=== PATIENT | male | born 1970 | race African-American/Black ===

== ENCOUNTER 2021-06-02 10:40 | Inpatient (IN) | payer OTHER ==
[2021-06-02 11:58] VITALS: BMI 25.8
[2021-06-02] MEDS ORDERED: chlordiazePOXIDE HCL 25 MG CAPSULE PO PRN (14:15)
[2021-06-02] MEDS ORDERED: IBUPROFEN 400 MG TABLET (FP) PO PRN (14:15)
[2021-06-02] MEDS ORDERED: MAGNESIUM HYDROX 2400MG/30ML ORAL SUSPENSION 30 ML CUP PO PRN (14:15)
[2021-06-02] MEDS ORDERED: MENTHOL/PHENOL 1 EACH UD MM PRN (14:15)
[2021-06-02] MEDS ORDERED: ACETAMINOPHEN 325 MG TABLET (FP) PO PRN ×2 (14:15)
[2021-06-02] MEDS ORDERED: MAGNESIUM CITRATE 300 ML BOTTLE PO PRN (14:15)
[2021-06-02] MEDS ORDERED: chlordiazePOXIDE HCL 25 MG CAPSULE PO ONE (14:15)
[2021-06-02] MEDS ORDERED: ONDANSETRON *ODT* 4 MG TABLET SL PRN (14:15)
[2021-06-02] MEDS ORDERED: NICOTINE 10 MG CARTRIDGE (INHALER) IH PRN (14:15)
[2021-06-02] MEDS ORDERED: NICOTINE POLACRILEX 2 MG GUM BUC PRN (14:15)
[2021-06-02] MEDS ORDERED: MAG HYDROX/AL HYDROX/SIMETH 30 ML UNIT-DOSE CUP PO PRN (14:15)
[2021-06-02] MEDS ORDERED: amLODIPine BESYLATE 5 MG TABLET (FP) ONE (17:53)
[2021-06-02] MEDS ORDERED: METHOCARBAMOL 500 MG TABLET ONE ×2 (17:53)
[2021-06-02] MEDS ORDERED: hydrOXYzine PAMOATE 25 MG CAPSULE (FP) PO ONE (17:53)
[2021-06-02] MEDS ORDERED: chlordiazePOXIDE HCL 25 MG CAPSULE ONE (17:53)
[2021-06-02] MEDS: amLODIPine BESYLATE 10 MG TABLET (FP) PO SCH (17:55)
[2021-06-02] MEDS: METHOCARBAMOL 500 MG TABLET PO PRN ×2 (17:56→23:16)
[2021-06-02] MEDS: hydrOXYzine PAMOATE 25 MG CAPSULE (FP) PO SCH ×2 (17:56→23:15)
[2021-06-02] MEDS: chlordiazePOXIDE HCL 25 MG CAPSULE PO SCH ×2 (17:56→23:16)
[2021-06-02] MEDS ORDERED: MELATONIN 5 MG TABLETS PO SCH (22:00)
[2021-06-02] MEDS: THIAMINE HCL 100 MG TABLET (FP) PO SCH (23:26)
[2021-06-02] MEDS: PRENATAL VITAMINS W/ FOLIC ACID TABLET (FP) PO SCH (23:26)
[2021-06-02] MEDS: NICOTINE 21 MG/24 HOURS TOPICAL PATCH TD SCH (23:27)
[2021-06-02] MEDS: LIDOCAINE PATCH REMOVAL MC SCH (23:27)
[2021-06-02] MEDS: LIDOCAINE 5% TOPICAL PATCH TP SCH (23:27)
[2021-06-03] MEDS: chlordiazePOXIDE HCL 25 MG CAPSULE PO SCH ×4 (06:42→22:52)
[2021-06-03] MEDS: hydrOXYzine PAMOATE 25 MG CAPSULE (FP) PO SCH ×5 (06:42→22:52)
[2021-06-03] MEDS: BISMUTH SUBSALICYLATE 524 MG/30 ML PO PRN ×3 (06:44→19:17)
[2021-06-03] MEDS: PRENATAL VITAMINS W/ FOLIC ACID TABLET (FP) PO SCH (10:22)
[2021-06-03] MEDS: amLODIPine BESYLATE 10 MG TABLET (FP) PO SCH (10:23)
[2021-06-03] MEDS ORDERED: PNEUMOC 13-VAL CONJ-DIP CRM/PF 0.5 ML DISP.SYRIN IM ONE (12:00)
[2021-06-03] MEDS: NICOTINE 21 MG/24 HOURS TOPICAL PATCH TD SCH (15:52)
[2021-06-03] MEDS: LIDOCAINE 5% TOPICAL PATCH TP SCH (15:53)
[2021-06-03] MEDS: METHOCARBAMOL 500 MG TABLET PO PRN (19:17)
[2021-06-03] MEDS: CLOTRIMAZOLE 1% CREAM TP SCH (22:15)
[2021-06-03] MEDS: LIDOCAINE PATCH REMOVAL MC SCH (22:16)
[2021-06-03] MEDS: SUVOREXANT 10 MG TABLET PO PRN (22:52)
[2021-06-03] MEDS: THIAMINE HCL 100 MG TABLET (FP) PO SCH (22:52)
[2021-06-04] MEDS: chlordiazePOXIDE HCL 25 MG CAPSULE PO SCH ×4 (06:08→22:37)
[2021-06-04] MEDS: hydrOXYzine PAMOATE 25 MG CAPSULE (FP) PO SCH ×5 (06:08→22:37)
[2021-06-04] MEDS: NICOTINE POLACRILEX 2 MG GUM BUC PRN (06:22)
[2021-06-04] MEDS: amLODIPine BESYLATE 10 MG TABLET (FP) PO SCH (10:54)
[2021-06-04] MEDS: NICOTINE 21 MG/24 HOURS TOPICAL PATCH TD SCH (10:54)
[2021-06-04] MEDS: PRENATAL VITAMINS W/ FOLIC ACID TABLET (FP) PO SCH (10:54)
[2021-06-04] MEDS: LIDOCAINE 5% TOPICAL PATCH TP SCH (10:58)
[2021-06-04] MEDS: CLOTRIMAZOLE 1% CREAM TP SCH ×2 (11:00→22:07)
[2021-06-04] MEDS: METHOCARBAMOL 500 MG TABLET PO PRN (18:31)
[2021-06-04] MEDS: LIDOCAINE PATCH REMOVAL MC SCH (22:06)
[2021-06-04] MEDS: THIAMINE HCL 100 MG TABLET (FP) PO SCH (22:37)
[2021-06-04] MEDS: SUVOREXANT 10 MG TABLET PO PRN (22:37)
[2021-06-05] MEDS ORDERED: chlordiazePOXIDE HCL 10 MG CAPSULE PO PRN
[2021-06-05] MEDS: hydrOXYzine PAMOATE 25 MG CAPSULE (FP) PO SCH ×5 (06:13→21:13)
[2021-06-05] MEDS: chlordiazePOXIDE HCL 10 MG CAPSULE PO SCH ×4 (06:13→22:08)
[2021-06-05] MEDS: BISMUTH SUBSALICYLATE 524 MG/30 ML PO PRN ×2 (06:15→14:27)
[2021-06-05] MEDS: LORATADINE 10 MG TABLET PO SCH (10:49)
[2021-06-05] MEDS: PRENATAL VITAMINS W/ FOLIC ACID TABLET (FP) PO SCH (10:49)
[2021-06-05] MEDS: METHOCARBAMOL 500 MG TABLET PO PRN (10:49)
[2021-06-05] MEDS: LIDOCAINE 5% TOPICAL PATCH TP SCH (10:50)
[2021-06-05] MEDS: amLODIPine BESYLATE 10 MG TABLET (FP) PO SCH (10:50)
[2021-06-05] MEDS: NICOTINE 21 MG/24 HOURS TOPICAL PATCH TD SCH (10:51)
[2021-06-05] MEDS: CLOTRIMAZOLE 1% CREAM TP SCH ×2 (10:51→21:14)
[2021-06-05] MEDS: FLUTICASONE PROP 0.05% 16 GM NASAL SPRAY NS SCH (11:33)
[2021-06-05] MEDS: THIAMINE HCL 100 MG TABLET (FP) PO SCH (21:13)
[2021-06-05] MEDS: LIDOCAINE PATCH REMOVAL MC SCH (21:14)
[2021-06-06] MEDS: hydrOXYzine PAMOATE 25 MG CAPSULE (FP) PO SCH ×5 (06:22→22:21)
[2021-06-06] MEDS: chlordiazePOXIDE HCL 10 MG CAPSULE PO SCH ×2 (06:22→18:06)
[2021-06-06] MEDS: BISMUTH SUBSALICYLATE 524 MG/30 ML PO PRN (06:23)
[2021-06-06] MEDS: NICOTINE POLACRILEX 2 MG GUM BUC PRN (06:23)
[2021-06-06] MEDS: CLOTRIMAZOLE 1% CREAM TP SCH ×2 (10:30→22:22)
[2021-06-06] MEDS: amLODIPine BESYLATE 10 MG TABLET (FP) PO SCH (10:30)
[2021-06-06] MEDS: METHOCARBAMOL 500 MG TABLET PO PRN ×2 (10:30→22:21)
[2021-06-06] MEDS: LORATADINE 10 MG TABLET PO SCH (10:30)
[2021-06-06] MEDS: PRENATAL VITAMINS W/ FOLIC ACID TABLET (FP) PO SCH (10:30)
[2021-06-06] MEDS: LIDOCAINE 5% TOPICAL PATCH TP SCH (10:31)
[2021-06-06] MEDS: NICOTINE 21 MG/24 HOURS TOPICAL PATCH TD SCH (10:31)
[2021-06-06] MEDS: FLUTICASONE PROP 0.05% 16 GM NASAL SPRAY NS SCH (10:32)
[2021-06-06] MEDS: THIAMINE HCL 100 MG TABLET (FP) PO SCH (22:21)
[2021-06-06] MEDS: LIDOCAINE PATCH REMOVAL MC SCH (22:22)
[2021-06-07] MEDS ORDERED: chlordiazePOXIDE HCL 10 MG CAPSULE PO ONE (05:00)
[2021-06-07] MEDS: hydrOXYzine PAMOATE 25 MG CAPSULE (FP) PO SCH ×2 (06:45→10:03)
[2021-06-07] MEDS: NICOTINE POLACRILEX 2 MG GUM BUC PRN (07:22)
[2021-06-07 09:13] VITALS: BP 136/88; PULSE 71; TEMP 97.3
[2021-06-07] MEDS: LIDOCAINE 5% TOPICAL PATCH TP SCH (10:02)
[2021-06-07] MEDS: FLUTICASONE PROP 0.05% 16 GM NASAL SPRAY NS SCH (10:03)
[2021-06-07] MEDS: amLODIPine BESYLATE 10 MG TABLET (FP) PO SCH (10:03)
[2021-06-07] MEDS: PRENATAL VITAMINS W/ FOLIC ACID TABLET (FP) PO SCH (10:03)
[2021-06-07] MEDS: LORATADINE 10 MG TABLET PO SCH (10:03)
[2021-06-07] MEDS: METHOCARBAMOL 500 MG TABLET PO PRN (10:03)
[2021-06-07] MEDS: NICOTINE 21 MG/24 HOURS TOPICAL PATCH TD SCH (10:04)
[2021-06-07] MEDS: CLOTRIMAZOLE 1% CREAM TP SCH (10:04)
== END 2021-06-07 12:21 | disposition other institution (70) | DRG 773 ==
LOC: YASAS 10:40 → Y6N 20:23
PROVIDERS: ADMIT Allergy & Immunology; ATTEND Allergy & Immunology
PROC: HZ2ZZZZ Detoxification Services for Substance Abuse Treatment (ICD-10-PCS; principal; 2021-06-02)
DX: F10.230 Alcohol dependence with withdrawal, uncomplicated (principal); F13.230 Sedative, hypnotic or anxiolytic dependence with withdrawal, uncomplicated; F11.20 Opioid dependence, uncomplicated; F14.20 Cocaine dependence, uncomplicated; F12.20 Cannabis dependence, uncomplicated; F17.213 Nicotine dependence, cigarettes, with withdrawal; F19.282 Other psychoactive substance dependence with psychoactive substance-induced sleep disorder; F19.24 Other psychoactive substance dependence with psychoactive substance-induced mood disorder; I10 Essential (primary) hypertension; K21.9 Gastro-esophageal reflux disease without esophagitis; M54.50 Low back pain, unspecified; G89.29 Other chronic pain; Z87.11 Personal history of peptic ulcer disease; Z59.00 Homelessness unspecified; Z86.69 Personal history of other diseases of the nervous system and sense organs
CPT/HCPCS: 90670; C9803; U0003; U0005

== ENCOUNTER 2021-06-07 11:35 | Inpatient (IN) | payer OTHER ==
[~2021-06-07 11:35] MED LIST: ACETAMINOPHEN 325 MG TABLET (FP) PO PRN; IBUPROFEN 400 MG TABLET (FP) PO PRN; LOPERAMIDE HCL 2 MG CAPSULE PO PRN; MAGNESIUM CITRATE 300 ML BOTTLE PO PRN; MAGNESIUM HYDROX 2400MG/30ML ORAL SUSPENSION 30 ML CUP PO PRN; NICOTINE 10 MG CARTRIDGE (INHALER) IH PRN; guaiFENesin 200 MG/10 ML 10 ML UNIT-DOSE CUPS PO PRN; hydrOXYzine PAMOATE 25 MG CAPSULE (FP) PO PRN
[2021-06-07] MEDS ORDERED: BISMUTH SUBSALICYLATE 262 MG/15 ML BTL PO PRN (13:47)
[2021-06-07] MEDS ORDERED: MINERAL OIL/PETROLAT/WATER TOPICAL CREAM 113 GM JAR TP PRN (13:48)
[2021-06-07] MEDS ORDERED: COLLOIDAL OATMEAL 1 BAR EACH TP PRN (13:48)
[2021-06-07] MEDS ORDERED: IBUPROFEN 600 MG TABLET (FP) PO PRN (13:50)
[2021-06-07] MEDS ORDERED: BISMUTH SUBSALICYLATE 262 MG/15 ML BTL ONE (21:39)
[2021-06-07] MEDS: THIAMINE HCL 100 MG TABLET (FP) PO SCH (21:40)
[2021-06-07] MEDS: MELATONIN 5 MG TABLETS PO SCH (21:40)
[2021-06-07] MEDS: PARoxetine HCL 10 MG TABLET PO SCH (21:40)
[2021-06-07] MEDS: TOLNAFTATE 1% POWDER 45 GM POW TP SCH (21:41)
[2021-06-07] MEDS: IBUPROFEN 600 MG TABLET (FP) PO PRN (21:42)
[2021-06-07] MEDS: LIDOCAINE PATCH REMOVAL MC SCH (21:44)
[2021-06-07] MEDS: CLOTRIMAZOLE 1% CREAM TP SCH (21:46)
[2021-06-07] MEDS ORDERED: MELATONIN 5 MG TABLETS PO SCH (22:00)
[2021-06-07] MEDS ORDERED: TOLNAFTATE 1% POWDER 45 GM POW TP SCH (22:00)
[2021-06-08] MEDS: NICOTINE POLACRILEX 4 MG GUM BUC PRN (06:32)
[2021-06-08] MEDS: LORATADINE 10 MG TABLET PO SCH (09:52)
[2021-06-08] MEDS: FLUTICASONE PROP 0.05% 16 GM NASAL SPRAY NS SCH (09:53)
[2021-06-08] MEDS: LIDOCAINE 5% TOPICAL PATCH TP SCH (09:53)
[2021-06-08] MEDS: CLOTRIMAZOLE 1% CREAM TP SCH ×2 (09:54→21:18)
[2021-06-08] MEDS: NICOTINE 21 MG/24 HOURS TOPICAL PATCH TD SCH (09:54)
[2021-06-08] MEDS: amLODIPine BESYLATE 10 MG TABLET (FP) PO SCH (09:54)
[2021-06-08] MEDS: PRENATAL VITAMINS W/ FOLIC ACID TABLET (FP) PO SCH (09:54)
[2021-06-08] MEDS: TOLNAFTATE 1% POWDER 45 GM POW TP SCH ×2 (09:55→21:20)
[2021-06-08] MEDS: LIDOCAINE PATCH REMOVAL MC SCH (21:15)
[2021-06-08] MEDS: THIAMINE HCL 100 MG TABLET (FP) PO SCH (21:19)
[2021-06-08] MEDS: PARoxetine HCL 10 MG TABLET PO SCH (21:19)
[2021-06-08] MEDS: MELATONIN 5 MG TABLETS PO SCH (21:19)
[2021-06-09] MEDS: NICOTINE POLACRILEX 4 MG GUM BUC PRN ×2 (06:16→21:24)
[2021-06-09] MEDS: NICOTINE 21 MG/24 HOURS TOPICAL PATCH TD SCH (11:45)
[2021-06-09] MEDS: LORATADINE 10 MG TABLET PO SCH (11:45)
[2021-06-09] MEDS: PRENATAL VITAMINS W/ FOLIC ACID TABLET (FP) PO SCH (11:45)
[2021-06-09] MEDS: FLUTICASONE PROP 0.05% 16 GM NASAL SPRAY NS SCH (11:45)
[2021-06-09] MEDS: TOLNAFTATE 1% POWDER 45 GM POW TP SCH ×2 (11:45→21:11)
[2021-06-09] MEDS: LIDOCAINE 5% TOPICAL PATCH TP SCH (11:45)
[2021-06-09] MEDS: CLOTRIMAZOLE 1% CREAM TP SCH ×2 (11:45→21:12)
[2021-06-09] MEDS: amLODIPine BESYLATE 10 MG TABLET (FP) PO SCH (11:50)
[2021-06-09] MEDS: MELATONIN 5 MG TABLETS PO SCH (21:10)
[2021-06-09] MEDS: THIAMINE HCL 100 MG TABLET (FP) PO SCH (21:10)
[2021-06-09] MEDS: LIDOCAINE PATCH REMOVAL MC SCH (21:12)
[2021-06-09] MEDS: PARoxetine HCL 10 MG TABLET PO SCH (22:46)
[2021-06-10] MEDS: NICOTINE POLACRILEX 4 MG GUM BUC PRN ×2 (06:35→21:09)
[2021-06-10] MEDS: amLODIPine BESYLATE 10 MG TABLET (FP) PO SCH (09:36)
[2021-06-10] MEDS: PRENATAL VITAMINS W/ FOLIC ACID TABLET (FP) PO SCH (09:36)
[2021-06-10] MEDS: LORATADINE 10 MG TABLET PO SCH (09:37)
[2021-06-10] MEDS: FLUTICASONE PROP 0.05% 16 GM NASAL SPRAY NS SCH (09:38)
[2021-06-10] MEDS: TOLNAFTATE 1% POWDER 45 GM POW TP SCH ×2 (09:38→21:06)
[2021-06-10] MEDS: LIDOCAINE 5% TOPICAL PATCH TP SCH (09:39)
[2021-06-10] MEDS: CLOTRIMAZOLE 1% CREAM TP SCH ×2 (09:40→21:06)
[2021-06-10] MEDS: NICOTINE 21 MG/24 HOURS TOPICAL PATCH TD SCH (09:40)
[2021-06-10 11:23] LABS: CALCIUM 9.2 mg/dL (8.5-10.1)
[2021-06-10 11:24] LABS: ALBUMIN 3.8 g/dl (3.4-5.0); BLOOD UREA NITROGEN 9.9 mg/dL (7-18)
[2021-06-10 11:26] LABS: BASO % 1.5 % (0-2.0); HEMATOCRIT 41.5 % (35.4-49); HEMOGLOBIN 14.1 GM/dL (11.7-16.9); MCH 30.2 pg (25.7-33.7); MCHC 34.1 g/dl (32.0-35.9); MEAN CELL VOLUME 88.5 fl (80-96); MEAN PLT VOLUME 8.2 fl (7.5-11.1); MONO % 9.7 % (3.8-10.2); NEUT % 32.8 % (42.8-82.8); PLATELET COUNT 226 10^3/uL (134-434); RBC 4.68 M/mm3 (4.00-5.60); RDW 17.1 % (11.9-15.9); WHITE BLOOD COUNT 4.8 K/mm3 (4.0-10.0)
[2021-06-10 11:27] LABS: CREATININE 0.9 mg/dL (0.55-1.3)
[2021-06-10 11:28] LABS: BILIRUBIN,TOTAL 0.8 mg/dL (0.2-1); TOT PROT 7.1 g/dl (6.4-8.2)
[2021-06-10 14:07] LABS: SARS-CoV-2 NAA Not Detected (Not Detected)
[2021-06-10] MEDS: LIDOCAINE PATCH REMOVAL MC SCH (21:05)
[2021-06-10] MEDS: IBUPROFEN 600 MG TABLET (FP) PO PRN (21:05)
[2021-06-10] MEDS: MELATONIN 5 MG TABLETS PO SCH (21:06)
[2021-06-10] MEDS: THIAMINE HCL 100 MG TABLET (FP) PO SCH (21:06)
[2021-06-10] MEDS: PARoxetine HCL 10 MG TABLET PO SCH (21:06)
[2021-06-11] MEDS: NICOTINE POLACRILEX 4 MG GUM BUC PRN (06:24)
[2021-06-11] MEDS: FLUTICASONE PROP 0.05% 16 GM NASAL SPRAY NS SCH (10:10)
[2021-06-11] MEDS: PRENATAL VITAMINS W/ FOLIC ACID TABLET (FP) PO SCH (10:11)
[2021-06-11] MEDS: amLODIPine BESYLATE 10 MG TABLET (FP) PO SCH (10:13)
[2021-06-11] MEDS: LIDOCAINE 5% TOPICAL PATCH TP SCH (10:13)
[2021-06-11] MEDS: CLOTRIMAZOLE 1% CREAM TP SCH (10:13)
[2021-06-11] MEDS: NICOTINE 21 MG/24 HOURS TOPICAL PATCH TD SCH (10:14)
[2021-06-11] MEDS: TOLNAFTATE 1% POWDER 45 GM POW TP SCH (10:14)
[2021-06-11] MEDS: LORATADINE 10 MG TABLET PO SCH (10:15)
[2021-06-11] MEDS: LIDOCAINE PATCH REMOVAL MC SCH (21:07)
[2021-06-11] MEDS: MELATONIN 5 MG TABLETS PO SCH (21:08)
[2021-06-11] MEDS: PARoxetine HCL 10 MG TABLET PO SCH (21:08)
[2021-06-11] MEDS: THIAMINE HCL 100 MG TABLET (FP) PO SCH (21:08)
[2021-06-11] MEDS: BACITRACIN/POLYMYXIN B SULFATE 15 GM TUBE TP SCH (21:09)
[2021-06-11] MEDS: CLOTRIMAZOLE/BETAMET DIPROP TOPICAL CREAM 45 GM TUBE TP SCH (21:11)
[2021-06-12] MEDS: NICOTINE POLACRILEX 4 MG GUM BUC PRN ×2 (06:20→21:37)
[2021-06-12] MEDS: LORATADINE 10 MG TABLET PO SCH (09:41)
[2021-06-12] MEDS: FLUTICASONE PROP 0.05% 16 GM NASAL SPRAY NS SCH (09:41)
[2021-06-12] MEDS: CLOTRIMAZOLE/BETAMET DIPROP TOPICAL CREAM 45 GM TUBE TP SCH ×2 (09:42→21:39)
[2021-06-12] MEDS: LIDOCAINE 5% TOPICAL PATCH TP SCH (09:42)
[2021-06-12] MEDS: NICOTINE 21 MG/24 HOURS TOPICAL PATCH TD SCH (09:42)
[2021-06-12] MEDS: BACITRACIN/POLYMYXIN B SULFATE 15 GM TUBE TP SCH ×2 (09:43→21:38)
[2021-06-12] MEDS: amLODIPine BESYLATE 10 MG TABLET (FP) PO SCH (09:43)
[2021-06-12] MEDS: PRENATAL VITAMINS W/ FOLIC ACID TABLET (FP) PO SCH (09:43)
[2021-06-12] MEDS: MELATONIN 5 MG TABLETS PO SCH (21:36)
[2021-06-12] MEDS: THIAMINE HCL 100 MG TABLET (FP) PO SCH (21:36)
[2021-06-12] MEDS: PARoxetine HCL 10 MG TABLET PO SCH (21:36)
[2021-06-12] MEDS: LIDOCAINE PATCH REMOVAL MC SCH (21:37)
[2021-06-13] MEDS: NICOTINE POLACRILEX 4 MG GUM BUC PRN ×2 (06:42→21:28)
[2021-06-13] MEDS: LIDOCAINE 5% TOPICAL PATCH TP SCH (10:01)
[2021-06-13] MEDS: NICOTINE 21 MG/24 HOURS TOPICAL PATCH TD SCH (10:01)
[2021-06-13] MEDS: amLODIPine BESYLATE 10 MG TABLET (FP) PO SCH (10:02)
[2021-06-13] MEDS: PRENATAL VITAMINS W/ FOLIC ACID TABLET (FP) PO SCH (10:02)
[2021-06-13] MEDS: BACITRACIN/POLYMYXIN B SULFATE 15 GM TUBE TP SCH ×2 (10:02→21:28)
[2021-06-13] MEDS: FLUTICASONE PROP 0.05% 16 GM NASAL SPRAY NS SCH (10:03)
[2021-06-13] MEDS: NAPROXEN 375 MG TABLET PO PRN (10:04)
[2021-06-13] MEDS: LORATADINE 10 MG TABLET PO SCH (10:05)
[2021-06-13] MEDS: CLOTRIMAZOLE/BETAMET DIPROP TOPICAL CREAM 45 GM TUBE TP SCH ×2 (10:07→23:29)
[2021-06-13] MEDS: PARoxetine HCL 10 MG TABLET PO SCH (21:27)
[2021-06-13] MEDS: THIAMINE HCL 100 MG TABLET (FP) PO SCH (21:27)
[2021-06-13] MEDS: MELATONIN 5 MG TABLETS PO SCH (21:27)
[2021-06-13] MEDS: LIDOCAINE PATCH REMOVAL MC SCH (23:29)
[2021-06-14] MEDS: NICOTINE POLACRILEX 4 MG GUM BUC PRN ×2 (06:12→21:19)
[2021-06-14] MEDS: LORATADINE 10 MG TABLET PO SCH (09:45)
[2021-06-14] MEDS: CLOTRIMAZOLE/BETAMET DIPROP TOPICAL CREAM 45 GM TUBE TP SCH ×2 (09:46→21:19)
[2021-06-14] MEDS: NICOTINE 14 MG/24 HOURS TOPICAL PATCH TD SCH (09:46)
[2021-06-14] MEDS: FLUTICASONE PROP 0.05% 16 GM NASAL SPRAY NS SCH (09:46)
[2021-06-14] MEDS: LIDOCAINE 5% TOPICAL PATCH TP SCH (09:46)
[2021-06-14] MEDS: BACITRACIN/POLYMYXIN B SULFATE 15 GM TUBE TP SCH ×2 (09:47→21:19)
[2021-06-14] MEDS: PRENATAL VITAMINS W/ FOLIC ACID TABLET (FP) PO SCH (09:47)
[2021-06-14] MEDS: amLODIPine BESYLATE 10 MG TABLET (FP) PO SCH (09:47)
[2021-06-14] MEDS: NAPROXEN 375 MG TABLET PO PRN ×2 (13:32→21:13)
[2021-06-14] MEDS: LIDOCAINE PATCH REMOVAL MC SCH (21:12)
[2021-06-14] MEDS: PARoxetine HCL 10 MG TABLET PO SCH (21:15)
[2021-06-14] MEDS: THIAMINE HCL 100 MG TABLET (FP) PO SCH (21:16)
[2021-06-14] MEDS: MELATONIN 5 MG TABLETS PO SCH (21:17)
[2021-06-15] MEDS: NICOTINE POLACRILEX 4 MG GUM BUC PRN (07:36)
[2021-06-15] MEDS: amLODIPine BESYLATE 10 MG TABLET (FP) PO SCH (09:38)
[2021-06-15] MEDS: PRENATAL VITAMINS W/ FOLIC ACID TABLET (FP) PO SCH (09:39)
[2021-06-15] MEDS: FLUTICASONE PROP 0.05% 16 GM NASAL SPRAY NS SCH (09:39)
[2021-06-15] MEDS: LORATADINE 10 MG TABLET PO SCH (09:39)
[2021-06-15] MEDS: BACITRACIN/POLYMYXIN B SULFATE 15 GM TUBE TP SCH ×2 (09:40→22:38)
[2021-06-15] MEDS: CLOTRIMAZOLE/BETAMET DIPROP TOPICAL CREAM 45 GM TUBE TP SCH ×2 (09:40→21:46)
[2021-06-15] MEDS: LIDOCAINE 5% TOPICAL PATCH TP SCH (09:40)
[2021-06-15] MEDS: NICOTINE 14 MG/24 HOURS TOPICAL PATCH TD SCH (09:40)
[2021-06-15] MEDS: NAPROXEN 375 MG TABLET PO PRN (21:45)
[2021-06-15] MEDS: PARoxetine HCL 10 MG TABLET PO SCH (21:45)
[2021-06-15] MEDS: THIAMINE HCL 100 MG TABLET (FP) PO SCH (21:46)
[2021-06-15] MEDS: MELATONIN 5 MG TABLETS PO SCH (21:46)
[2021-06-15] MEDS: LIDOCAINE PATCH REMOVAL MC SCH (22:37)
[2021-06-16] MEDS: NICOTINE POLACRILEX 2 MG GUM BUC PRN ×2 (06:25→21:15)
[2021-06-16] MEDS: LORATADINE 10 MG TABLET PO SCH (09:38)
[2021-06-16] MEDS: CLOTRIMAZOLE/BETAMET DIPROP TOPICAL CREAM 45 GM TUBE TP SCH ×2 (09:39→23:48)
[2021-06-16] MEDS: FLUTICASONE PROP 0.05% 16 GM NASAL SPRAY NS SCH (09:39)
[2021-06-16] MEDS: LIDOCAINE 5% TOPICAL PATCH TP SCH (09:39)
[2021-06-16] MEDS: NICOTINE 14 MG/24 HOURS TOPICAL PATCH TD SCH (09:39)
[2021-06-16] MEDS: amLODIPine BESYLATE 10 MG TABLET (FP) PO SCH (09:40)
[2021-06-16] MEDS: PRENATAL VITAMINS W/ FOLIC ACID TABLET (FP) PO SCH (09:40)
[2021-06-16] MEDS: BACITRACIN/POLYMYXIN B SULFATE 15 GM TUBE TP SCH ×2 (09:40→23:49)
[2021-06-16] MEDS: THIAMINE HCL 100 MG TABLET (FP) PO SCH (21:14)
[2021-06-16] MEDS: MELATONIN 5 MG TABLETS PO SCH (21:14)
[2021-06-16] MEDS: PARoxetine HCL 10 MG TABLET PO SCH (21:14)
[2021-06-16] MEDS: LIDOCAINE PATCH REMOVAL MC SCH (23:46)
[2021-06-17] MEDS: NICOTINE POLACRILEX 2 MG GUM BUC PRN ×2 (06:13→21:17)
[2021-06-17] MEDS: FLUTICASONE PROP 0.05% 16 GM NASAL SPRAY NS SCH (09:47)
[2021-06-17] MEDS: LORATADINE 10 MG TABLET PO SCH (09:47)
[2021-06-17] MEDS: NICOTINE 14 MG/24 HOURS TOPICAL PATCH TD SCH (09:48)
[2021-06-17] MEDS: LIDOCAINE 5% TOPICAL PATCH TP SCH (09:48)
[2021-06-17] MEDS: CLOTRIMAZOLE/BETAMET DIPROP TOPICAL CREAM 45 GM TUBE TP SCH ×2 (09:48→21:13)
[2021-06-17] MEDS: amLODIPine BESYLATE 10 MG TABLET (FP) PO SCH (09:49)
[2021-06-17] MEDS: PRENATAL VITAMINS W/ FOLIC ACID TABLET (FP) PO SCH (09:49)
[2021-06-17] MEDS: BACITRACIN/POLYMYXIN B SULFATE 15 GM TUBE TP SCH ×2 (09:49→21:14)
[2021-06-17] MEDS: THIAMINE HCL 100 MG TABLET (FP) PO SCH (21:12)
[2021-06-17] MEDS: PARoxetine HCL 10 MG TABLET PO SCH (21:12)
[2021-06-17] MEDS: LIDOCAINE PATCH REMOVAL MC SCH (21:13)
[2021-06-17] MEDS: MELATONIN 5 MG TABLETS PO SCH (21:13)
[2021-06-17] MEDS: NAPROXEN 375 MG TABLET PO PRN (21:15)
[2021-06-18] MEDS: PRENATAL VITAMINS W/ FOLIC ACID TABLET (FP) PO SCH (09:37)
[2021-06-18] MEDS: NICOTINE 14 MG/24 HOURS TOPICAL PATCH TD SCH (09:37)
[2021-06-18] MEDS: amLODIPine BESYLATE 10 MG TABLET (FP) PO SCH (09:37)
[2021-06-18] MEDS: BACITRACIN/POLYMYXIN B SULFATE 15 GM TUBE TP SCH (09:38)
[2021-06-18] MEDS: NAPROXEN 375 MG TABLET PO PRN ×2 (09:38→21:20)
[2021-06-18] MEDS: LORATADINE 10 MG TABLET PO SCH (09:38)
[2021-06-18] MEDS: LIDOCAINE 5% TOPICAL PATCH TP SCH (09:38)
[2021-06-18] MEDS: CLOTRIMAZOLE/BETAMET DIPROP TOPICAL CREAM 45 GM TUBE TP SCH ×2 (09:38→22:56)
[2021-06-18] MEDS: FLUTICASONE PROP 0.05% 16 GM NASAL SPRAY NS SCH (09:39)
[2021-06-18] MEDS: THIAMINE HCL 100 MG TABLET (FP) PO SCH (21:20)
[2021-06-18] MEDS: PARoxetine HCL 10 MG TABLET PO SCH (21:20)
[2021-06-18] MEDS: MELATONIN 5 MG TABLETS PO SCH (21:22)
[2021-06-18] MEDS: NICOTINE POLACRILEX 2 MG GUM BUC PRN (21:23)
[2021-06-18] MEDS: LIDOCAINE PATCH REMOVAL MC SCH (22:57)
[2021-06-19] MEDS: NICOTINE POLACRILEX 2 MG GUM BUC PRN ×2 (06:21→21:35)
[2021-06-19] MEDS: amLODIPine BESYLATE 10 MG TABLET (FP) PO SCH (09:59)
[2021-06-19] MEDS: FLUTICASONE PROP 0.05% 16 GM NASAL SPRAY NS SCH (09:59)
[2021-06-19] MEDS: LORATADINE 10 MG TABLET PO SCH (09:59)
[2021-06-19] MEDS: CLOTRIMAZOLE/BETAMET DIPROP TOPICAL CREAM 45 GM TUBE TP SCH ×2 (10:00→21:35)
[2021-06-19] MEDS: LIDOCAINE 5% TOPICAL PATCH TP SCH (10:00)
[2021-06-19] MEDS: PRENATAL VITAMINS W/ FOLIC ACID TABLET (FP) PO SCH (10:00)
[2021-06-19] MEDS: NICOTINE 14 MG/24 HOURS TOPICAL PATCH TD SCH (10:00)
[2021-06-19] MEDS: MELATONIN 5 MG TABLETS PO SCH (21:32)
[2021-06-19] MEDS: NAPROXEN 375 MG TABLET PO PRN (21:32)
[2021-06-19] MEDS: PARoxetine HCL 10 MG TABLET PO SCH (21:33)
[2021-06-19] MEDS: LIDOCAINE PATCH REMOVAL MC SCH (21:34)
[2021-06-19] MEDS: THIAMINE HCL 100 MG TABLET (FP) PO SCH (21:34)
[2021-06-20] MEDS: NICOTINE POLACRILEX 2 MG GUM BUC PRN ×2 (06:09→21:17)
[2021-06-20] MEDS: LORATADINE 10 MG TABLET PO SCH (09:52)
[2021-06-20] MEDS: FLUTICASONE PROP 0.05% 16 GM NASAL SPRAY NS SCH (09:52)
[2021-06-20] MEDS: NICOTINE 14 MG/24 HOURS TOPICAL PATCH TD SCH (09:53)
[2021-06-20] MEDS: CLOTRIMAZOLE/BETAMET DIPROP TOPICAL CREAM 45 GM TUBE TP SCH ×2 (09:53→21:11)
[2021-06-20] MEDS: LIDOCAINE 5% TOPICAL PATCH TP SCH (09:53)
[2021-06-20] MEDS: amLODIPine BESYLATE 10 MG TABLET (FP) PO SCH (09:54)
[2021-06-20] MEDS: PRENATAL VITAMINS W/ FOLIC ACID TABLET (FP) PO SCH (09:54)
[2021-06-20] MEDS: NAPROXEN 375 MG TABLET PO PRN ×2 (09:54→21:15)
[2021-06-20] MEDS: LIDOCAINE PATCH REMOVAL MC SCH (21:10)
[2021-06-20] MEDS: MELATONIN 5 MG TABLETS PO SCH (21:11)
[2021-06-20] MEDS: THIAMINE HCL 100 MG TABLET (FP) PO SCH (21:11)
[2021-06-20] MEDS: PARoxetine HCL 10 MG TABLET PO SCH (21:11)
[2021-06-21] MEDS: NICOTINE POLACRILEX 2 MG GUM BUC PRN (06:29)
[2021-06-21] MEDS: LORATADINE 10 MG TABLET PO SCH (09:38)
[2021-06-21] MEDS: LIDOCAINE 5% TOPICAL PATCH TP SCH (09:38)
[2021-06-21] MEDS: NICOTINE 14 MG/24 HOURS TOPICAL PATCH TD SCH (09:39)
[2021-06-21] MEDS: FLUTICASONE PROP 0.05% 16 GM NASAL SPRAY NS SCH (09:39)
[2021-06-21] MEDS: CLOTRIMAZOLE/BETAMET DIPROP TOPICAL CREAM 45 GM TUBE TP SCH ×2 (09:40→21:35)
[2021-06-21] MEDS: amLODIPine BESYLATE 10 MG TABLET (FP) PO SCH (09:40)
[2021-06-21] MEDS: PRENATAL VITAMINS W/ FOLIC ACID TABLET (FP) PO SCH (09:41)
[2021-06-21] MEDS: PARoxetine HCL 10 MG TABLET PO SCH (21:33)
[2021-06-21] MEDS: NAPROXEN 375 MG TABLET PO PRN (21:33)
[2021-06-21] MEDS: THIAMINE HCL 100 MG TABLET (FP) PO SCH (21:33)
[2021-06-21] MEDS: MELATONIN 5 MG TABLETS PO SCH (21:34)
[2021-06-21] MEDS: LIDOCAINE PATCH REMOVAL MC SCH (23:04)
[2021-06-22] MEDS: NICOTINE POLACRILEX 2 MG GUM BUC PRN ×2 (07:06→22:11)
[2021-06-22] MEDS: LORATADINE 10 MG TABLET PO SCH (09:54)
[2021-06-22] MEDS: FLUTICASONE PROP 0.05% 16 GM NASAL SPRAY NS SCH (09:54)
[2021-06-22] MEDS: CLOTRIMAZOLE/BETAMET DIPROP TOPICAL CREAM 45 GM TUBE TP SCH (09:57)
[2021-06-22] MEDS: LIDOCAINE 5% TOPICAL PATCH TP SCH (09:57)
[2021-06-22] MEDS: PRENATAL VITAMINS W/ FOLIC ACID TABLET (FP) PO SCH (09:57)
[2021-06-22] MEDS: NICOTINE 14 MG/24 HOURS TOPICAL PATCH TD SCH (09:57)
[2021-06-22] MEDS: amLODIPine BESYLATE 10 MG TABLET (FP) PO SCH (09:57)
[2021-06-22] MEDS: NAPROXEN 375 MG TABLET PO PRN ×2 (09:58→22:08)
[2021-06-22] MEDS: THIAMINE HCL 100 MG TABLET (FP) PO SCH (22:06)
[2021-06-22] MEDS: MELATONIN 5 MG TABLETS PO SCH (22:07)
[2021-06-22] MEDS: PARoxetine HCL 10 MG TABLET PO SCH (22:19)
[2021-06-22] MEDS: BACITRACIN/POLYMYXIN B SULFATE 15 GM TUBE TP SCH (22:48)
[2021-06-22] MEDS: LIDOCAINE PATCH REMOVAL MC SCH (22:49)
[2021-06-23] MEDS: LORATADINE 10 MG TABLET PO SCH (09:45)
[2021-06-23] MEDS: amLODIPine BESYLATE 10 MG TABLET (FP) PO SCH (09:45)
[2021-06-23] MEDS: LIDOCAINE 5% TOPICAL PATCH TP SCH (09:45)
[2021-06-23] MEDS: NICOTINE 14 MG/24 HOURS TOPICAL PATCH TD SCH (09:46)
[2021-06-23] MEDS: FLUTICASONE PROP 0.05% 16 GM NASAL SPRAY NS SCH (09:46)
[2021-06-23] MEDS: BACITRACIN/POLYMYXIN B SULFATE 15 GM TUBE TP SCH (09:46)
[2021-06-23] MEDS: PRENATAL VITAMINS W/ FOLIC ACID TABLET (FP) PO SCH (09:46)
[2021-06-23] MEDS: PARoxetine HCL 10 MG TABLET PO SCH (21:49)
[2021-06-23] MEDS: THIAMINE HCL 100 MG TABLET (FP) PO SCH (21:49)
[2021-06-23] MEDS: NAPROXEN 375 MG TABLET PO PRN (21:49)
[2021-06-23] MEDS: MELATONIN 5 MG TABLETS PO SCH (21:50)
[2021-06-23] MEDS: NICOTINE POLACRILEX 2 MG GUM BUC PRN (21:53)
[2021-06-23] MEDS: LIDOCAINE PATCH REMOVAL MC SCH (22:08)
[2021-06-24] MEDS: NICOTINE POLACRILEX 2 MG GUM BUC PRN ×2 (06:25→21:14)
[2021-06-24] MEDS: NICOTINE 14 MG/24 HOURS TOPICAL PATCH TD SCH (09:38)
[2021-06-24] MEDS: amLODIPine BESYLATE 10 MG TABLET (FP) PO SCH (09:39)
[2021-06-24] MEDS: LORATADINE 10 MG TABLET PO SCH (09:39)
[2021-06-24] MEDS: FLUTICASONE PROP 0.05% 16 GM NASAL SPRAY NS SCH (09:39)
[2021-06-24] MEDS: PRENATAL VITAMINS W/ FOLIC ACID TABLET (FP) PO SCH (09:39)
[2021-06-24] MEDS: BACITRACIN/POLYMYXIN B SULFATE 15 GM TUBE TP SCH (09:40)
[2021-06-24] MEDS: LIDOCAINE 5% TOPICAL PATCH TP SCH (09:40)
[2021-06-24] MEDS: LIDOCAINE PATCH REMOVAL MC SCH (21:09)
[2021-06-24] MEDS: THIAMINE HCL 100 MG TABLET (FP) PO SCH (21:12)
[2021-06-24] MEDS: PARoxetine HCL 10 MG TABLET PO SCH (21:12)
[2021-06-24] MEDS: MELATONIN 5 MG TABLETS PO SCH (21:12)
[2021-06-24] MEDS: NAPROXEN 375 MG TABLET PO PRN (21:12)
[2021-06-25] MEDS: NICOTINE POLACRILEX 2 MG GUM BUC PRN ×2 (06:45→21:22)
[2021-06-25] MEDS: amLODIPine BESYLATE 10 MG TABLET (FP) PO SCH (10:06)
[2021-06-25] MEDS: FLUTICASONE PROP 0.05% 16 GM NASAL SPRAY NS SCH (10:07)
[2021-06-25] MEDS: LORATADINE 10 MG TABLET PO SCH (10:07)
[2021-06-25] MEDS: NICOTINE 14 MG/24 HOURS TOPICAL PATCH TD SCH (10:08)
[2021-06-25] MEDS: LIDOCAINE 5% TOPICAL PATCH TP SCH (10:08)
[2021-06-25] MEDS: NAPROXEN 375 MG TABLET PO PRN ×2 (10:09→21:22)
[2021-06-25] MEDS: PRENATAL VITAMINS W/ FOLIC ACID TABLET (FP) PO SCH (10:09)
[2021-06-25] MEDS: BACITRACIN/POLYMYXIN B SULFATE 15 GM TUBE TP SCH (10:09)
[2021-06-25] MEDS: THIAMINE HCL 100 MG TABLET (FP) PO SCH (21:20)
[2021-06-25] MEDS: MELATONIN 5 MG TABLETS PO SCH (21:20)
[2021-06-25] MEDS: PARoxetine HCL 10 MG TABLET PO SCH (21:20)
[2021-06-25] MEDS: LIDOCAINE PATCH REMOVAL MC SCH (21:22)
[2021-06-26] MEDS: NICOTINE POLACRILEX 2 MG GUM BUC PRN ×2 (06:20→21:51)
[2021-06-26] MEDS: FLUTICASONE PROP 0.05% 16 GM NASAL SPRAY NS SCH (09:50)
[2021-06-26] MEDS: amLODIPine BESYLATE 10 MG TABLET (FP) PO SCH (09:50)
[2021-06-26] MEDS: PRENATAL VITAMINS W/ FOLIC ACID TABLET (FP) PO SCH (09:50)
[2021-06-26] MEDS: BACITRACIN/POLYMYXIN B SULFATE 15 GM TUBE TP SCH (09:50)
[2021-06-26] MEDS: LORATADINE 10 MG TABLET PO SCH (09:50)
[2021-06-26] MEDS: LIDOCAINE 5% TOPICAL PATCH TP SCH (09:50)
[2021-06-26] MEDS: NICOTINE 14 MG/24 HOURS TOPICAL PATCH TD SCH (09:52)
[2021-06-26] MEDS: NAPROXEN 375 MG TABLET PO PRN ×2 (09:52→21:50)
[2021-06-26] MEDS: MELATONIN 5 MG TABLETS PO SCH (21:50)
[2021-06-26] MEDS: THIAMINE HCL 100 MG TABLET (FP) PO SCH (21:51)
[2021-06-26] MEDS: PARoxetine HCL 10 MG TABLET PO SCH (21:51)
[2021-06-27] MEDS: NICOTINE POLACRILEX 2 MG GUM BUC PRN ×2 (06:13→21:26)
[2021-06-27] MEDS: LORATADINE 10 MG TABLET PO SCH (09:56)
[2021-06-27] MEDS: FLUTICASONE PROP 0.05% 16 GM NASAL SPRAY NS SCH (09:56)
[2021-06-27] MEDS: NICOTINE 7 MG/24 HOURS TOPICAL PATCH TD SCH (09:56)
[2021-06-27] MEDS: amLODIPine BESYLATE 10 MG TABLET (FP) PO SCH (09:58)
[2021-06-27] MEDS: BACITRACIN/POLYMYXIN B SULFATE 15 GM TUBE TP SCH (09:58)
[2021-06-27] MEDS: PRENATAL VITAMINS W/ FOLIC ACID TABLET (FP) PO SCH (09:59)
[2021-06-27] MEDS: NAPROXEN 375 MG TABLET PO PRN ×2 (09:59→21:24)
[2021-06-27] MEDS: PARoxetine HCL 10 MG TABLET PO SCH (21:23)
[2021-06-27] MEDS: MELATONIN 5 MG TABLETS PO SCH (21:23)
[2021-06-27] MEDS: THIAMINE HCL 100 MG TABLET (FP) PO SCH (21:23)
[2021-06-28] MEDS: NICOTINE POLACRILEX 2 MG GUM BUC PRN ×2 (06:16→21:19)
[2021-06-28] MEDS: LORATADINE 10 MG TABLET PO SCH (09:47)
[2021-06-28] MEDS: amLODIPine BESYLATE 10 MG TABLET (FP) PO SCH (09:48)
[2021-06-28] MEDS: FLUTICASONE PROP 0.05% 16 GM NASAL SPRAY NS SCH (09:48)
[2021-06-28] MEDS: NICOTINE 7 MG/24 HOURS TOPICAL PATCH TD SCH (09:48)
[2021-06-28] MEDS: PRENATAL VITAMINS W/ FOLIC ACID TABLET (FP) PO SCH (09:49)
[2021-06-28] MEDS: NAPROXEN 375 MG TABLET PO PRN ×2 (09:49→21:16)
[2021-06-28] MEDS: MELATONIN 5 MG TABLETS PO SCH (21:17)
[2021-06-28] MEDS: PARoxetine HCL 10 MG TABLET PO SCH (21:17)
[2021-06-28] MEDS: THIAMINE HCL 100 MG TABLET (FP) PO SCH (21:17)
[2021-06-29] MEDS: NICOTINE POLACRILEX 2 MG GUM BUC PRN (06:33)
[2021-06-29] MEDS: FLUTICASONE PROP 0.05% 16 GM NASAL SPRAY NS SCH (10:06)
[2021-06-29] MEDS: amLODIPine BESYLATE 10 MG TABLET (FP) PO SCH (10:07)
[2021-06-29] MEDS: LORATADINE 10 MG TABLET PO SCH (10:07)
[2021-06-29] MEDS: NICOTINE 7 MG/24 HOURS TOPICAL PATCH TD SCH (10:07)
[2021-06-29] MEDS: PRENATAL VITAMINS W/ FOLIC ACID TABLET (FP) PO SCH (10:07)
[2021-06-29] MEDS: NAPROXEN 375 MG TABLET PO PRN ×2 (10:08→21:27)
[2021-06-29] MEDS: MAG HYDROX/AL HYDROX/SIMETH 30 ML UNIT-DOSE CUP PO PRN (10:09)
[2021-06-29] MEDS: MELATONIN 5 MG TABLETS PO SCH (21:26)
[2021-06-29] MEDS: THIAMINE HCL 100 MG TABLET (FP) PO SCH (21:26)
[2021-06-29] MEDS: PARoxetine HCL 10 MG TABLET PO SCH (21:27)
[2021-06-30] MEDS: NICOTINE POLACRILEX 2 MG GUM BUC PRN ×4 (06:09→18:43)
[2021-06-30] MEDS: FLUTICASONE PROP 0.05% 16 GM NASAL SPRAY NS SCH (09:40)
[2021-06-30] MEDS: LORATADINE 10 MG TABLET PO SCH (09:40)
[2021-06-30] MEDS: NICOTINE 7 MG/24 HOURS TOPICAL PATCH TD SCH (09:41)
[2021-06-30] MEDS: NAPROXEN 375 MG TABLET PO PRN ×2 (09:41→21:11)
[2021-06-30] MEDS: amLODIPine BESYLATE 10 MG TABLET (FP) PO SCH (09:41)
[2021-06-30] MEDS: PRENATAL VITAMINS W/ FOLIC ACID TABLET (FP) PO SCH (09:41)
[2021-06-30] MEDS: MELATONIN 5 MG TABLETS PO SCH (21:09)
[2021-06-30] MEDS: THIAMINE HCL 100 MG TABLET (FP) PO SCH (21:11)
[2021-06-30] MEDS: MAG HYDROX/AL HYDROX/SIMETH 30 ML UNIT-DOSE CUP PO PRN (21:11)
[2021-06-30] MEDS: PARoxetine HCL 10 MG TABLET PO SCH (21:11)
[2021-07-01] MEDS: NICOTINE POLACRILEX 2 MG GUM BUC PRN ×3 (07:27→21:38)
[2021-07-01] MEDS: LORATADINE 10 MG TABLET PO SCH (09:56)
[2021-07-01] MEDS: PRENATAL VITAMINS W/ FOLIC ACID TABLET (FP) PO SCH (09:56)
[2021-07-01] MEDS: amLODIPine BESYLATE 10 MG TABLET (FP) PO SCH (09:56)
[2021-07-01] MEDS: NAPROXEN 375 MG TABLET PO PRN ×2 (09:57→21:36)
[2021-07-01] MEDS: FLUTICASONE PROP 0.05% 16 GM NASAL SPRAY NS SCH (10:03)
[2021-07-01] MEDS: NICOTINE 7 MG/24 HOURS TOPICAL PATCH TD SCH (10:04)
[2021-07-01] MEDS: PARoxetine HCL 10 MG TABLET PO SCH (21:34)
[2021-07-01] MEDS: THIAMINE HCL 100 MG TABLET (FP) PO SCH (21:34)
[2021-07-01] MEDS: MELATONIN 5 MG TABLETS PO SCH (21:35)
[2021-07-02] MEDS: NICOTINE POLACRILEX 2 MG GUM BUC PRN ×4 (06:39→21:33)
[2021-07-02] MEDS: LORATADINE 10 MG TABLET PO SCH (10:13)
[2021-07-02] MEDS: FLUTICASONE PROP 0.05% 16 GM NASAL SPRAY NS SCH (10:14)
[2021-07-02] MEDS: amLODIPine BESYLATE 10 MG TABLET (FP) PO SCH (10:14)
[2021-07-02] MEDS: NICOTINE 7 MG/24 HOURS TOPICAL PATCH TD SCH (10:14)
[2021-07-02] MEDS: NAPROXEN 375 MG TABLET PO PRN ×2 (10:14→21:32)
[2021-07-02] MEDS: PRENATAL VITAMINS W/ FOLIC ACID TABLET (FP) PO SCH (10:14)
[2021-07-02] MEDS: MAG HYDROX/AL HYDROX/SIMETH 30 ML UNIT-DOSE CUP PO PRN (14:45)
[2021-07-02] MEDS: PARoxetine HCL 10 MG TABLET PO SCH (21:31)
[2021-07-02] MEDS: THIAMINE HCL 100 MG TABLET (FP) PO SCH (21:32)
[2021-07-02] MEDS: MELATONIN 5 MG TABLETS PO SCH (21:32)
[2021-07-03] MEDS: NICOTINE POLACRILEX 2 MG GUM BUC PRN ×3 (06:14→21:38)
[2021-07-03] MEDS: LORATADINE 10 MG TABLET PO SCH (09:44)
[2021-07-03] MEDS: PRENATAL VITAMINS W/ FOLIC ACID TABLET (FP) PO SCH (09:44)
[2021-07-03] MEDS: amLODIPine BESYLATE 10 MG TABLET (FP) PO SCH (09:44)
[2021-07-03] MEDS: NICOTINE 7 MG/24 HOURS TOPICAL PATCH TD SCH (09:45)
[2021-07-03] MEDS: FLUTICASONE PROP 0.05% 16 GM NASAL SPRAY NS SCH (09:45)
[2021-07-03] MEDS: NAPROXEN 375 MG TABLET PO PRN ×2 (09:46→21:37)
[2021-07-03] MEDS: MELATONIN 5 MG TABLETS PO SCH (21:36)
[2021-07-03] MEDS: THIAMINE HCL 100 MG TABLET (FP) PO SCH (21:36)
[2021-07-03] MEDS: PARoxetine HCL 10 MG TABLET PO SCH (21:36)
[2021-07-04] MEDS: NICOTINE POLACRILEX 2 MG GUM BUC PRN ×4 (06:23→21:17)
[2021-07-04] MEDS: amLODIPine BESYLATE 10 MG TABLET (FP) PO SCH (10:05)
[2021-07-04] MEDS: LORATADINE 10 MG TABLET PO SCH (10:05)
[2021-07-04] MEDS: FLUTICASONE PROP 0.05% 16 GM NASAL SPRAY NS SCH (10:06)
[2021-07-04] MEDS: PRENATAL VITAMINS W/ FOLIC ACID TABLET (FP) PO SCH (10:06)
[2021-07-04] MEDS: NICOTINE 7 MG/24 HOURS TOPICAL PATCH TD SCH (10:06)
[2021-07-04] MEDS: NAPROXEN 375 MG TABLET PO PRN ×2 (10:07→21:16)
[2021-07-04] MEDS: BACITRACIN 0.9 GM PACKET TP SCH (21:15)
[2021-07-04] MEDS: THIAMINE HCL 100 MG TABLET (FP) PO SCH (21:15)
[2021-07-04] MEDS: MELATONIN 5 MG TABLETS PO SCH (21:15)
[2021-07-04] MEDS: PARoxetine HCL 10 MG TABLET PO SCH (21:15)
[2021-07-05] MEDS: NICOTINE POLACRILEX 2 MG GUM BUC PRN ×2 (06:19→08:33)
[2021-07-05 06:35] VITALS: TEMP 97.1
[2021-07-05 09:06] VITALS: BP 104/68; PULSE 86
[2021-07-05] MEDS: NICOTINE 7 MG/24 HOURS TOPICAL PATCH TD SCH (09:27)
[2021-07-05] MEDS: LORATADINE 10 MG TABLET PO SCH (09:29)
[2021-07-05] MEDS: FLUTICASONE PROP 0.05% 16 GM NASAL SPRAY NS SCH (09:29)
[2021-07-05] MEDS: NAPROXEN 375 MG TABLET PO PRN (09:30)
[2021-07-05] MEDS: PRENATAL VITAMINS W/ FOLIC ACID TABLET (FP) PO SCH (09:30)
[2021-07-05] MEDS: BACITRACIN 0.9 GM PACKET TP SCH (09:44)
[2021-07-05] MEDS: amLODIPine BESYLATE 10 MG TABLET (FP) PO SCH (09:44)
== END 2021-07-05 09:44 | disposition home or self-care (01) | DRG 772 ==
LOC: YASAS 11:35 → Y3E 11:36 → Y3W 11:52 → Y3E 11:56
PROVIDERS: ADMIT Allergy & Immunology; ATTEND Allergy & Immunology
PROC: HZ42ZZZ Group Counseling for Substance Abuse Treatment, Cognitive-Behavioral (ICD-10-PCS; principal; 2021-06-07)
DX: F10.20 Alcohol dependence, uncomplicated (principal); F13.20 Sedative, hypnotic or anxiolytic dependence, uncomplicated; F14.20 Cocaine dependence, uncomplicated; F12.20 Cannabis dependence, uncomplicated; F17.210 Nicotine dependence, cigarettes, uncomplicated; F41.9 Anxiety disorder, unspecified; F32.A Depression, unspecified; I10 Essential (primary) hypertension; K21.9 Gastro-esophageal reflux disease without esophagitis; M54.50 Low back pain, unspecified; G89.29 Other chronic pain; L60.8 Other nail disorders; R21 Rash and other nonspecific skin eruption
CPT/HCPCS: 36415; 80053; 85025; 86780; C9803; U0003; U0005